=== PATIENT | male | born 1985 | race Caucasian/White ===

== ENCOUNTER 2017-09-03 17:40 | Emergency (ER) | payer SELFPAY ==
[~2017-09-03] VITALS: Ht 185.4 cm; Wt 99.8 kg
[2017-09-03 17:44] VITALS: BP 164/132; Ht 185.4 cm; Wt 99.8 kg
== END 2017-09-03 20:40 | disposition home or self-care (01) ==
LOC: ED 17:40
DX: S61.210A Laceration without foreign body of right index finger without damage to nail, initial encounter (principal); X58.XXXA Exposure to other specified factors, initial encounter; Y93.89 Activity, other specified; Y92.89 Other specified places as the place of occurrence of the external cause; Y99.8 Other external cause status
CPT/HCPCS: J2001